=== PATIENT | female | born 2000 | race Two or more races ===

== ENCOUNTER → 2020-05-06 | Outpatient (CLI) | payer SELFPAY | LOC: M LABSMTC 11:29 | PROVIDERS: ATTEND Pediatrics | DX: Z20.822 Contact with and (suspected) exposure to COVID-19 (principal) ==

== ENCOUNTER → 2020-05-20 | Outpatient (CLI) | payer SELFPAY | LOC: M LABSMTC 11:06 | PROVIDERS: ATTEND Pediatrics | DX: Z20.822 Contact with and (suspected) exposure to COVID-19 (principal) ==

== ENCOUNTER 2020-09-30 09:37 | Emergency (ER) | payer OTHER, SELFPAY ==
[~2020-09-30] VITALS: Ht 160 cm; Wt 104.5 kg
[2020-09-30] MEDS ORDERED: LATU20TA PO (09:45)
[2020-09-30] MEDS ORDERED: LOES1TAB12 PO (09:45)
[2020-09-30] MEDS ORDERED: TRAZ-252 PO (09:45)
[2020-09-30] MEDS ORDERED: LAMI1TAB7 PO (09:45)
[2020-09-30 10:59] LABS: BASO # 0.1 10^3/uL (0.0-0.2); BASO % 0.5 % (0.0-1.0); EOS # 0.2 10^3/uL (0.0-0.5); EOS % 1.5 % (0.0-3.0); HEMATOCRIT 40.9 % (36.0-47.0); HEMOGLOBIN 13.9 g/dl (12.0-15.5); LYMPH # 3.1 10^3/uL (1.5-5.0); LYMPH % 25.1 % (24.0-44.0); MEAN CORPUSCULAR HEMOGLOBIN 28.4 pg (27.0-33.0); MEAN CORPUSCULAR VOLUME 83.6 fl (80.0-96.0); MONO # 0.6 10^3/uL (0.0-0.8); MONO % 4.7 % (2.0-8.0); NEUTROPHILS # 8.4 10^3/uL (1.5-8.5); NEUTROPHILS % 67.6 % (36.0-66.0); PLATELET COUNT, AUTOMATED 387 10^3/uL (150-450); RED BLOOD COUNT 4.89 10^6/uL (4.00-5.40); WHITE BLOOD COUNT 12.5 10^3/uL (4.0-10.0)
[2020-09-30 11:24] LABS: HCG, SERUM QUALITATIVE NEGATIVE (NEGATIVE)
[2020-09-30 11:27] LABS: ALBUMIN 3.4 GM/DL (3.2-5.2); ALT/SGPT 16 U/L (12-78); BILIRUBIN,DIRECT < 0.1 MG/DL (0.0-0.2); BILIRUBIN,TOTAL 0.2 MG/DL (0.2-1.0); BLOOD UREA NITROGEN 11 MG/DL (7-18); CALCIUM LEVEL 8.9 MG/DL (8.5-10.1); CARBON DIOXIDE LEVEL 24 MEQ/L (21-32); CHLORIDE LEVEL 107 MEQ/L (98-107); GLOMERULAR FILTRATION RATE > 60.0 (>60); GLUCOSE, FASTING 97 MG/DL (70-100); LIPASE 60 U/L (73-393); POTASSIUM SERUM 4.3 MEQ/L (3.5-5.1); SODIUM LEVEL 139 MEQ/L (136-145); TOTAL PROTEIN 6.8 GM/DL (6.4-8.2)
[2020-09-30] MEDS ORDERED: NS 1,000 ML IV ONE (11:30)
[2020-09-30] MEDS ORDERED: ISOVUE-370 76% 100ML VIAL As Ordered ONE (11:32)
--- NOTE | 2020-09-30 12:10 | REP ---
INDICATION: RLQ, RUQ pain, nausea COMPARISON: None. TECHNIQUE: CT Scan of the abdomen and pelvis was performed with intravenous administration of 100 cc of Isovue 370, without oral contrast. Sagittal and coronal reconstruction images are performed. FINDINGS: Lung bases: Unremarkable. Liver: Normal Gallbladder: Unremarkable. Spleen: Normal. Adrenals: Normal. Pancreas: Normal. Kidneys: Normal. Small and large bowel: Unremarkable. Free fluid: None. Abdominal aorta: No aneurysm or dissection. Adenopathy: None. Appendix: Not inflamed. Osseous structures: Unremarkable. Pelvis: No mass. IMPRESSION: Negative CT abdomen and pelvis. <Electronically signed by Chuy Hinson > 09/30/20 [id number]
--- NOTE | 2020-09-30 13:01 | REP ---
INDICATION: RLQ/pelvic pain. COMPARISON: None TECHNIQUE: Transvesical imaging only. The reason for the lack of transvaginal imaging is unknown to me. FINDINGS: The uterus measures 7.6 x 2.9 x 4.5 cm. The parenchymal echo pattern is within normal limits. The endometrial echo complex is smooth and unremarkable appearing measuring 6 mm in its greatest thickness. Right ovary measures 2.5 x 1.6 x 1.9 cm and is within normal limits with an RI 0.5 fibroid Left ovary measures 3.7 x 1.9 x 2.1 cm and is within normal limits with an RI of 0.53. Urinary bladder measures 11 x 9 x 7 cm. IMPRESSION: Pelvic ultrasonography is within normal limits <Electronically signed by Wilmar Chua > 09/30/20 [id number]
[2020-09-30 13:51] VITALS: BP 134/86
== END 2020-09-30 13:52 | disposition home or self-care (01) ==
LOC: M ED 09:37
DX: R10.9 Unspecified abdominal pain (principal); K21.9 Gastro-esophageal reflux disease without esophagitis
CPT/HCPCS: 74177; 76856; 80048; 80076; 83690; 84703; 85025; 93976; 96360; 99284; Q9967

== ENCOUNTER → 2021-03-24 | Outpatient (REF) ==
[~2021-03-24] MED LIST: LAMI1TAB7 PO; LATU20TA PO; LOES1TAB12 PO; TRAZ-252 PO
== END ==
LOC: M PLAIMG 08:16
PROVIDERS: ATTEND Internal Medicine
DX: M25.561 Pain in right knee (principal); M25.562 Pain in left knee

== ENCOUNTER → 2021-09-04 | Outpatient (REF) | payer OTHER | LOC: M LAB REF 12:08 | PROVIDERS: ATTEND Physician Assistant | DX: R11.2 Nausea with vomiting, unspecified (principal); R53.83 Other fatigue ==